=== PATIENT | male | born 1980 | race Caucasian/White ===

== ENCOUNTER 2019-10-17 17:06 | Emergency (ER) | payer BC, OTHER ==
[2019-10-17 17:22] VITALS: BP 132/75
[2019-10-17] MEDS ORDERED: HYDROmorphone 1 MG/ML CARPUJECT IVP STA (17:51)
--- NOTE | 2019-10-17 17:51 | ED Physician Documentation ---
History of Present Illness - Stated complaint Stated Complaint: NECK PX - Chief complaint Chief Complaint: General - History obtained from History obtained from: Patient - History of Present Illness Timing: Prior to arrival, Today Pain level max: 9 Pain level now: 8 - Additonal information Additional information: 39-year-old male presents to the emergency department with chief complaint of left-sided neck pain. Patient reports sleeping on his side last night and when he woke up this morning his neck was stiff and he had difficult time moving it. Patient has had this before. Typically he receives an injection of pain medicine and he is able to be discharged from the emergency department. Patient denies any recent falls or trauma. No numbness tingling or paresthesias in the upper extremities. Denies chest pain shortness of breath pleuritic chest pain. Review of Systems Constitutional: reports: Myalgias. denies: Fever, Chills, Fatigue, Weight Loss, Sweats GI: denies: Abdominal Pain, Nausea, Vomiting : denies: Dysuria, Frequency Skin: denies: Rash, Lesions Musculoskeletal: reports: Neck pain. denies: Back pain, Extremity pain, Joint pain, Extremity swelling, Joint swelling Neurologic: denies: Generalized weakness, Focal weakness, Numbness, Difficulty speaking, Near syncope, Syncope, Seizure PD PAST MEDICAL HISTORY - Past Medical History Past Medical History: No - Past Surgical History Past Surgical History: No - Present Medications Home Medications: Ambulatory Orders Medication Instructions Recorded Confirmed Cyclobenzaprine [Flexeril] 10 mg PO BID #10 tablet 10/17/19 Ibuprofen [Motrin] 600 mg PO Q6H PRN #30 tab 10/17/19 - Allergies Allergies/Adverse Reactions: Allergies Allergy/AdvReac Type Severity Reaction Status Date / Time No Known Drug Allergies Allergy Verified 10/17/19 17:16 - Social History Does the pt smoke?: No Smoking Status: Never smoker Does the pt drink ETOH?: Yes Does the pt have substance abuse?: No - Immunizations Immunizations are current?: Yes - POLST Patient has POLST: No PD ED PE NORMAL - General General: Alert and oriented X 3, No acute distress, Well developed/nourished - HEENT HEENT: Atraumatic, PERRL - Neck Neck: Other (No midline spinous cervical tenderness elicited. Pain along the lower left trapezoid muscle. Motor strength of bilateral upper extremities is 5 of 5. 2+ distal radial pulse.) - Cardiac Cardiac: RRR, No murmur, No gallop - Respiratory Respiratory: No respiratory distress, Clear bilaterally - Abdomen Abdomen: Normal bowel sounds, Non tender - Back Back: No CVA TTP, No spinal TTP - Extremities Extremities: No deformity, Normal ROM s pain, No edema - Neuro Neuro: Alert and oriented X 3, supervisor grips 2-12 intact, No motor deficit, No sensory deficit, Normal speech Eye Opening: Spontaneous Motor: Obeys Commands Verbal: Oriented GCS Score: 15 Results - Vitals Vitals: Vital Signs - 24 hr 10/17/19 17:12 Temperature 36.3 C L Heart Rate 60 Respiratory 16 Rate Blood Pressure 132/75 H O2 Saturation 98 Oxygen O2 Source Room air PD MEDICAL DECISION MAKING - ED course Complexity details: re-evaluated patient, d/w patient ED course: 39-year-old male presents to the emergency department with left-sided neck pain that he noted upon waking this morning. He feels that he may have slept wrong. - Patient was given 2 mg of Dilaudid in the emergency department with near immediate relief of the pain and symptoms. Patient feels that he is ready to be discharged home is clinically stable to do so we will recommend short course of NSAID medication and a muscle relaxer. -Emergent return precautions discussed. Departure - Departure Disposition: 01 Home, Self Care Clinical Impression: Strain of neck muscle Qualifiers: Encounter type: initial encounter Qualified Code(s): S16.1XXA - Strain of muscle, fascia and tendon at neck level, initial encounter Condition: Good Record reviewed to determine appropriate education?: Yes Instructions: ED Neck Pain No Trauma, ED Sprain Strain Neck Prescriptions: Cyclobenzaprine [Flexeril] 10 mg PO BID #10 tablet Ibuprofen [Motrin] 600 mg PO Q6H PRN #30 tab PRN Reason: Pain Comments: I am glad that you are feeling better. It is okay to take the ibuprofen 2-3 times a day as needed for the neck pain use the Flexeril very sparingly. This is a muscle relaxer and it may make you sleepy. Return to the ED if your symptoms worsen you have fevers or numbness tingling in your upper extremities.
[2019-10-17] MEDS ORDERED: HYDROmorphone 2 MG/ML VIAL IM STA (18:16)
== END 2019-10-17 19:06 | disposition home or self-care (01) ==
LOC: ED 17:06
DX: S16.1XXA Strain of muscle, fascia and tendon at neck level, initial encounter (principal); X50.1XXA Overexertion from prolonged static or awkward postures, initial encounter
CPT/HCPCS: 96372; 99283; 99284; J1170